=== PATIENT | male | born 1980 | race Caucasian/White ===

== ENCOUNTER → 2016-10-10 | Outpatient (REF) | LOC: WSOH 13:23 | DX: Z00.00 Encounter for general adult medical examination without abnormal findings (principal) ==

== ENCOUNTER 2024-04-22 19:41 | Emergency (ER) | payer BC ==
[~2024-04-22] VITALS: Ht 182.9 cm; Wt 99.5 kg
[~2024-04-22 19:41] MED LIST: FLOMAX 0.40.4 MG/CAP PO
[2024-04-22 19:42] VITALS: TEMP 98.2
[2024-04-22 21:01] LABS: ALANINE AMINOTRANSFERASE 40 U/L (0-55); ALBUMIN 3.8 g/dL (3.5-5.0); ALKALINE PHOSPHATASE 73 U/L (40-150); ANION GAP 14 mmol/L (7-16); AST,SGOT 35 U/L (5-34); BILIRUBIN,TOTAL 0.8 mg/dL (0.2-1.2); BLOOD UREA NITROGEN 8 mg/dL (9-21); CALCIUM 9.2 mg/dL (8.4-10.2); CHLORIDE 106 mEq/L (98-107); CREATININE, serum 1.06 mg/dL (0.72-1.25); GLUCOSE 93 mg/dL (70-99); POTASSIUM 3.6 mEq/L (3.5-4.5); SODIUM 139 mEq/L (136-145); TOTAL PROTEIN 6.6 g/dl (6.2-8.1)
[2024-04-22 21:04] LABS: BASO # 0.1 K/mm3 (0.0-0.2); BASO % 0.9 % (0.0-2.0); EOS # 0.3 K/mm3 (0.0-0.7); GRAN # 6.3 K/mm3 (1.4-6.5); GRAN % 69.5 % (42.2-75.2); HEMATOCRIT 44.7 % (42.0-52.0); HEMOGLOBIN 16.5 g/dl (13.5-18.0); LYMPH # 1.8 K/mm3 (1.2-3.4); LYMPH % 19.3 % (20.0-51.0); MEAN CELL VOLUME 94 fl (80.0-100.0); MEAN CORPUSCULAR HEMOGLOBIN 35 pg (27-31); MEAN CORPUSCULAR HGB CONC 37 g/dl (33.0-37.0); MEAN PLATELET VOLUME 8.9 fl (7.4-10.4); MONO # 0.6 K/mm3 (0.1-0.6); MONO % 6.7 % (1.7-9.3); PLATELET COUNT 166 K/mm3 (130-400); RED BLOOD COUNT 4.74 M/mm3 (4.20-5.60); REDCELL DISTRIBUTION WIDTH-CV 12.8 % (11.5-14.5)
[2024-04-22 21:07] LABS: TROPONIN-I < 0.010 ng/mL (0.00-0.033)
[2024-04-22] MEDS ORDERED: ATARAX 25MG25 MG/TAB PO (21:43)
[2024-04-22 21:54] VITALS: BP 144/99; PULSE 77
== END 2024-04-22 22:05 | disposition home or self-care (01) ==
LOC: COL.ER 19:41
PROVIDERS: Nurse Practitioner
DX: F41.9 Anxiety disorder, unspecified (principal); F17.200 Nicotine dependence, unspecified, uncomplicated